=== PATIENT | male | born 1965 | race Caucasian/White ===

== ENCOUNTER 2018-05-16 08:26 | Emergency (ER) | payer BC, OTHER ==
[~2018-05-16] VITALS: Ht 177.8 cm; Wt 98.4 kg
[2018-05-16] MEDS ORDERED: SODIUM CHLORIDE 0.9% 1,000 ML IVB ONE (08:56)
[2018-05-16] MEDS ORDERED: PANTOPRAZOLE 40 MG/10 ML VIAL IV STA (08:56)
[2018-05-16] MEDS ORDERED: PROMETHAZINE HCL 25 MG/ML 1ML IV PRN (09:00)
[2018-05-16] MEDS ORDERED: MORPHINE SULFATE 4 MG/ML SYR/VIAL IV ONE (09:00)
[2018-05-16 09:36] LABS: Basophils # (auto) 0.1 uL; Basophils % (auto) 1.1 % (0.0-2.0); Eosinophils # (auto) 0.6 uL; Eosinophils % (auto) 4.7 % (0.0-7.0); Hematocrit 45.8 % (41.0-53.0); Hemoglobin 15.3 g/dL (13.5-17.5); Lymphocytes % (auto) 22.6 % (10.0-50.0); Mean Corpuscular Hemoglobin 29.5 pg (28.0-32.0); Mean Corpuscular Hgb Conc. 33.4 g/dL (32.0-36.0); Mean Corpuscular Volume 88.2 fL (80.0-100.0); Monocytes # (auto) 1.1 uL; Neutrophils # (auto) 8.3 uL; Neutrophils % (auto) 63.6 % (37.0-80.0); Platelet Count (auto) 251 10^3/uL (140-450); Red Blood Cells 5.19 10^6/uL (4.5-5.90); Red Cell Distribution Width 13.3 % (11.8-14.3); White Blood Cell 13.1 10^3/uL (4.4-10.8)
[2018-05-16] MEDS ORDERED: VANCOMYCIN 1GM/250ML 250 ML IV ONE (09:45)
[2018-05-16 09:49] LABS: INR 0.89 (0.9-1.15); Partial Thromboplastin Time 25.2 sec (23.78-33.04); Prothrombin Time 9.6 sec (9.27-12.13)
[2018-05-16 09:57] LABS: Magnesium 2.4 mg/dL (1.6-2.6)
[2018-05-16 09:59] LABS: Albumin 4.1 g/dL (3.4-5.0); BUN/Creatinine Ratio 17.7; Bilirubin, Total 1.4 mg/dL (0.2-1.0); Calcium 9.3 mg/dL (8.5-10.1); Potassium 3.9 mmol/L (3.5-5.1); Total Protein 8.1 g/dL (6.4-8.2)
[2018-05-16] MEDS ORDERED: MORPHINE SULF INJ 2 MG/ML SYRINGE 1ML IV ONE (11:00)
[2018-05-16] MEDS ORDERED: ONDANSETRON HCL 4 MG/2 ML VIAL IV ONE (11:00)
[2018-05-16 11:10] VITALS: BP 133/88
== END 2018-05-16 11:30 | disposition short-term general hospital (02) ==
LOC: EDBD 08:26 → ER 08:26
DX: R07.89 Other chest pain (principal); R10.13 Epigastric pain; K22.3 Perforation of esophagus; F17.210 Nicotine dependence, cigarettes, uncomplicated
CPT/HCPCS: 36415; 71046; 71250; 74176; 80053; 83690; 83735; 85025; 85610; 85730; 93005; 94761; 96365; 96375; 96376; 99285; C9113; J2270; J2405; J2550; J3370; J7030